=== PATIENT | female | born 1945 | race Caucasian/White ===

== ENCOUNTER 2018-08-12 10:44 | Emergency (ER) | payer OTHER ==
[~2018-08-12] VITALS: Ht 157.5 cm; Wt 87.1 kg
[2018-08-12 10:49] VITALS: Ht 157.5 cm; Wt 87.1 kg
[2018-08-12 12:31] VITALS: BP 115/66
== END 2018-08-12 12:31 | disposition home or self-care (01) ==
LOC: ED 10:44
DX: M54.81 Occipital neuralgia (principal); I10 Essential (primary) hypertension; E78.00 Pure hypercholesterolemia, unspecified
CPT/HCPCS: J2001